=== PATIENT | female | born 1955 | race Caucasian/White ===

== ENCOUNTER → 2016-05-05 | Outpatient (CLI) | payer BC | END | disposition home or self-care (01) | LOC: C.PAPS 11:56 | PROVIDERS: ATTEND Obstetrics & Gynecology | DX: Z01.419 Encounter for gynecological examination (general) (routine) without abnormal findings (principal) ==

== ENCOUNTER → 2017-03-22 | Outpatient (CLI) | payer BC ==
--- NOTE | 2017-03-22 14:34 | MAMMOGRAPHY REPORT ---
BILATERAL DIGITAL SCREENING MAMMOGRAM TOMOSYNTHESIS WITH CAD: 03/22/2017 CLINICAL HISTORY: Routine screening. Patient has no complaints. TECHNIQUE: Breast tomosynthesis in addition to standard 2D mammography was performed. Current study was also evaluated with a Computer Aided Detection (CAD) system. COMPARISON: Comparison is made to exams dated: 03/16/2016 mammogram, 03/12/2015 mammogram, 03/09/2014 mammogram, 03/04/2013 mammogram, 02/26/2012 mammogram, and 02/15/2011 mammogram - [facility]. BREAST COMPOSITION: There are scattered areas of fibroglandular density in both breasts. FINDINGS: No suspicious masses, calcifications, or areas of architectural distortion are noted in ei ther breast. There has been no significant interval change compared to prior exams. Scattered bilater al benign-appearing calcifications are not significantly changed. IMPRESSION: ACR BI-RADS CATEGORY 2: BENIGN There is no mammographic evidence of malignancy. A 1 year screening mammogram is recommended. The pa tient will receive written notification of the results. Approximately 10% of breast cancers are not detected with mammography. A negative mammographic report should not delay biopsy if a clinically suggestive mass is present. Ashlie Bonilla M.D. /:03/22/2017 07:39:48 Nude Model: Celeste DELATORRE([place])([place])([place]), [facility] letter sent: Normal 1/2 BI-RADS Code: ACR BI-RADS Category 2: Benign
== END | disposition home or self-care (01) ==
LOC: C.MAMM 07:09
PROVIDERS: ATTEND Obstetrics & Gynecology
DX: Z12.31 Encounter for screening mammogram for malignant neoplasm of breast (principal)

== ENCOUNTER → 2017-05-07 | Outpatient (CLI) | payer BC | END | disposition home or self-care (01) | LOC: C.PAPS 12:15 | PROVIDERS: ATTEND Obstetrics & Gynecology | DX: Z01.419 Encounter for gynecological examination (general) (routine) without abnormal findings (principal); Z11.51 Encounter for screening for human papillomavirus (HPV) ==

== ENCOUNTER 2024-12-04 06:50 | Observation (INO) ==
--- NOTE | 2024-10-23 09:26 | PAT Medication Instructions ---
Medication Instructions Date of Service October 23, 2024 Home Medications ferrous sulfate 325 mg (65 mg iron) tablet 325 mg PO QAM valacyclovir 1 gram tablet 1,000 mg PO Q2D potassium 75 mg tablet 75 mg PO QAM amitriptyline 25 mg tablet 25 mg PO HS cholecalciferol (vitamin D3) 25 mcg (1,000 unit) tablet (Vitamin D3) 25 mcg PO QAM multivitamin 1 tab PO QAM vit C 250 mg-vit E 90 mg-zinc 40 mg-copper 1 [id number]-iuzgob capsule (PreserVision AREDS-2) 1 tab PO BID Continue as directed valacyclovir 1 gram tablet 1,000 mg PO Q2D STOP taking 2 weeks before surgery (or as soon as possible if surgery is within 2 weeks) vit C 250 mg-vit E 90 mg-zinc 40 mg-copper 1 [id number]-aawdfr capsule (PreserVision AREDS-2) 1 tab PO BID DO NOT take the morning of surgery ferrous sulfate 325 mg (65 mg iron) tablet 325 mg PO QAM potassium 75 mg tablet 75 mg PO QAM cholecalciferol (vitamin D3) 25 mcg (1,000 unit) tablet (Vitamin D3) 25 mcg PO QAM multivitamin 1 tab PO QAM Take evening before surgery amitriptyline 25 mg tablet 25 mg PO HS MORNING OF SURGERY: NOTHING TO EAT OR DRINK AFTER MIDNIGHT Other Notes If you have any questions please call us at [phone] or [phone] or [phone] or [phone]
--- NOTE | 2024-10-30 11:32 | Anesthesiology Consultation ---
Date of Service October 30, 2024 Assessment & Plan (1) Encounter for pre-operative examination: - awaiting surgeon ordered medical clearance, 11/11/24 Dr. Celeste De Dios [facility]. Chart Review Chart Review: Pending: Refer to Additional Notes / Consult section and Patient seen in Pre Admission Testing Teaching & Discussion Pre-Anesthesia Teaching/Discussion Notes: Instructed NPO after midnight before surgery, except medications with 15 cc of water. Medication instructions provided according to the PAT guidelines. History Surgery Operation Date: 12/04/24 08:15 Proposed Procedures p Left Total Hip Arthroplasty - Mehul Carmona MD Height/Weight Height: 5 ft 1 in Weight: 78.9 kg Allergies Allergy/AdvReac Type Severity Reaction Status Date / Time hydroxychloroquine Allergy Unknown Unknown Verified 10/23/24 08:41 [From Plaquenil] Sulfa (Sulfonamide Allergy Unknown Unknown Verified 10/23/24 08:41 Antibiotics) Medications Home Medications Medication Instructions Recorded Confirmed Last Taken ferrous sulfate 325 mg (65 mg 325 mg PO QAM 06/07/19 10/23/24 03/08/21 iron) tablet valacyclovir 1 gram tablet 1,000 mg PO Q2D 06/07/19 10/23/24 03/08/21 potassium 75 mg tablet 75 mg PO QAM 11/05/20 10/23/24 03/08/21 amitriptyline 25 mg tablet 25 mg PO HS 03/03/21 10/23/24 03/08/21 cholecalciferol (vitamin D3) 25 25 mcg PO QAM 03/03/21 10/23/24 03/08/21 mcg (1,000 unit) tablet (Vitamin D3) multivitamin 1 tab PO QAM 10/23/24 10/23/24 Unknown vit C 250 mg-vit E 90 mg-zinc 40 1 tab PO BID 10/23/24 10/23/24 Unknown mg-copper 1 hb-fyewnc-prvugr capsule (PreserVision AREDS-2) Past Medical History Medical History (Updated 10/30/24 @ 11:33 by Kaye Delcid PA-C) Herpes simplex on valacyclovir every other day IBS (irritable bowel syndrome) "it doesn't bother me as much anymore" Macular degeneration Osteoarthritis Patient denies h/o stroke, seizures, heart attack, heart failure, DM, HTN, blood clots/DVTs or blood transfusions. Exercise / Class Metabolic Activity II 4-5 Yardwork/Stairs/Walk up hill (shortness of breath with one flight of stairs-ongoing for several months-denies change or worsening; denies chest discomfort) Past Family History Family History Aunt Lung cancer Maternal Grandmother (Maternal) Ovarian cancer Daughter Skin cancer Denies family history of Breast cancer Colorectal cancer Past Surgical History Surgical History H/O wisdom tooth extraction History of biopsy Thyroid - Benign - To see Endocrinology December 2024 History of cataract surgery Bilateral History of colonoscopy History of esophagogastroduodenoscopy (EGD) History of tonsillectomy and adenoidectomy Past Anesthesia History No Hx of Anesthesia Complications and No Family Hx of Anesthesia Complications History of PONV No Hx of PONV and No Hx of Motion Sickness Social History Smoking Status: Never smoker Do You Dip or Chew Tobacco: No Hx Alcohol Use: No Hx Substance Use: No substance use type: does not use Review of Systems Snoring, denies witnessed apneas. Patient denies chest pain, reflux, fever, chills, cough, wheezing, or palpitations. Physical Exam Vital Signs Vitals BP 136/82 P 98 TEMP 98.4 SP02 97% on RA RESP 18 Physical Patient resting comfortably in chair in no acute distress, alert and oriented, responding appropriately throughout visit Full cervical extension range of motion without pain TMD 3.5 finger breadths Mallampati Score 2 Dentition: several crowns; denies chipped or loose teeth, caps, implants or bridges Lungs: normal respiratory effort. Good air movement, clear throughout to auscultation, no adventitious breath sounds Cardiac: regular rate and rhythm, no murmurs noted Carotid arteries: negative bruit bilat Lab Results Anesthesia Preop Results Results Anesthesia Widget: WBC 5.28 K/ul (4.8-10.8) 10/30/24 Hgb 11.9 g/dl (12.0-16.0) L 10/30/24 Hct 37.1 % (37.0-47.0) 10/30/24 Plt 307 K/uL (130-400) 10/30/24 Na 139 mmol/L (136-145) 10/30/24 K 4.5 mmol/L (3.5-5.1) 10/30/24 Cl 105 mmol/L (98-107) 10/30/24 CO2 28 mmol/L (21-32) 10/30/24 BUN 14 mg/dl (6-23) 10/30/24 Creat 0.68 mg/dl (0.6-1.2) 10/30/24 Glucose Level 92 mg/dl (70-99(Fasting)) 10/30/24 PT 10.9 Seconds (9.0-12.0) 10/30/24 PTT 29 Seconds (21-31) 10/30/24 INR 1.0 (0.9-1.1) 10/30/24 Urine Color Yellow 10/30/24 Urine Appearance Clear (Clear) 10/30/24 Urine pH 6.5 (4.5-7.5) 10/30/24 Urine Specific [place] 1.016 (1.000-1.030) 10/30/24 Urine Protein Negative (Negative) 10/30/24 Urine Glucose (UA) Negative (Negative) 10/30/24 Urine Ketones Trace (Negative) H 10/30/24 Urine Blood Negative (Negative) 10/30/24 Urine Nitrite Negative (Negative) 10/30/24 Urine Bilirubin Negative (Negative) 10/30/24 Urine Urobilinogen Negative (Negative) 10/30/24 Urine Leukocyte Esterase Trace (Negative) H 10/30/24 Urine WBC (Auto) 0-5 /hpf (0-5) 10/30/24 Urine RBC (Auto) 6-10 /hpf (0-2) H 10/30/24 Urine Hyaline Casts (Auto) 0-2 /lpf (0-2) 10/30/24 Urine Epithelial Cells (Auto) 0-2 /hpf (0-2) 10/30/24 Urine Bacteria (Auto) None Seen (None Seen) 10/30/24 Blood Type O Negative 10/30/24 Antibody Screen NEGATIVE 10/30/24 Testing Electrocardiogram Date: 10/30/24 NSR, rate 80 bpm Chest X-Ray Date: 02/28/24 No acute cardiopulmonary disease. Other Testing Thyroid US 03/17/24 Bilateral multinodular goiter showing Heterogeneous echotexture showing increased vascularity may be seen in thyroiditis.
[~2024-12-04 06:50] MED LIST: BUPIVACAINE 0.5 % 5 MG/1 ML PF 10ML VIAL ONE; MIDAZOLAM HCL 1 MG/ML 2ML VIAL ONE
[2024-12-04] MEDS: LR 500ML BOLUS, THEN 15ML/HR IV SCH (07:04)
[2024-12-04] MEDS: LR 60ML/HR IV SCH (07:04)
[2024-12-04] MEDS ORDERED: MIDAZOLAM HCL 1 MG/ML 2ML VIAL ONE (07:26)
[2024-12-04] MEDS ORDERED: ONDANSETRON INJ 2 MG/ML 2 ML VIAL ONE (07:26)
[2024-12-04] MEDS ORDERED: PROPOFOL IV EMULSION 10 MG/ML 20 ML VIAL IV ONE ×3 (07:26→08:45)
[2024-12-04] MEDS ORDERED: LIDOCAINE 2% 2 ML VIAL/AMP(20MG/ML) INFIL ONE (07:26)
--- NOTE | 2024-12-04 07:30 | History & Physical Bridge Note ---
Date of Service December 04, 2024 History & Physical Bridge Note I have examined the patient, reviewed the History & Physical and in the interval since the performance of the History & Physical I have noted the following changes of clinical significance: no changes noted
[2024-12-04] MEDS ORDERED: ATROPINE SULFATE 0.1 MG/ML 10ML SYR IV PRN (07:34)
[2024-12-04] MEDS ORDERED: ONDANSETRON INJ 2 MG/ML 2 ML VIAL IV PRN ×2 (07:34→09:57)
[2024-12-04] MEDS: ACETAMINOPHEN 500 MG TAB PO SCH ×2 (07:35→14:33)
[2024-12-04] MEDS: FAMOTIDINE 20 MG TAB PO SCH (07:35)
[2024-12-04] MEDS: dexAMETHasone**PF** 10 MG/ML VIAL IV SCH (07:36)
[2024-12-04] MEDS: TRANEXAMIC ACID 1,000 MG **IV Pre-op IV SCH (07:56)
[2024-12-04] MEDS: ORTHO JOINT ANESTHETIC ONE (08:42)
[2024-12-04] MEDS ORDERED: PHENYLEPHRINE HCL 10 MG/ML VIAL ONE (09:05)
[2024-12-04] MEDS ORDERED: ePHEDrine sulfate 50 MG/5 ML SYR ONE (09:19)
[2024-12-04] MEDS ORDERED: PHENYLEPHRINE 100MCG/ML 5ML SYR ONE (09:19)
[2024-12-04] MEDS: ROPIV 0.5% 246mg, Ketorolac 30mg, EPINEPHrine 0.5mg in NSS INFIL SCH (09:23)
--- NOTE | 2024-12-04 09:55 | Operative Report ---
Post Operative Report Pre & Post Diagnosis Operation Date: 12/04/24 08:15 Pre-Op Diagnosis: Left Hip Osteoarthritis Post-Op Diagnosis: Left Hip Osteoarthritis I identified the patient and participated in the time-out.: Yes Procedure Operation Date: 12/04/24 08:15 Actual Procedures p Left Total Hip Arthroplasty(Left) - Mehul Carmona MD Surgeon Mehul Carmona MD Employee Benefits Manager Zenon Ruiz PA-Nicole Estimated Blood Loss 100 Findings Consistent with Post-Op Diagnosis Specimens femoral head Description of Procedure I was present during the entire case assisting with positioning, prepping, draping, wound retraction, wound closure, dressing and abduction pillow placement. No fellow present. Please see Dr. Carmona operative note for specifics of the case. I attest to the content of the Intraoperative Record and any orders documented therein. Any exceptions are noted below.
[2024-12-04] MEDS ORDERED: ALUMINUM/MAGNESIUM SUSP 30 ML UDC PO PRN (09:57)
[2024-12-04] MEDS ORDERED: NALOXONE HCL 0.4 MG/1 ML VIAL/CARP IV PRN (09:57)
[2024-12-04] MEDS ORDERED: diphenhydrAMINE 50 MG/ML VIAL IV PRN (09:57)
[2024-12-04] MEDS ORDERED: MAGNESIUM HYDROXIDE SUSP 30 ML UDC PO PRN (09:57)
[2024-12-04] MEDS ORDERED: METOCLOPRAMIDE HCL INJ 5 MG/ML 2 ML VIAL IV PRN (09:57)
--- NOTE | 2024-12-04 10:02 | Operative Report ---
Post Operative Report Pre & Post Diagnosis Operation Date: 12/04/24 08:15 Pre-Op Diagnosis: Left Hip Osteoarthritis, acetabular protrusio Post-Op Diagnosis: Left Hip Osteoarthritis, acetabular protrusio I identified the patient and participated in the time-out.: Yes Procedure Operation Date: 12/04/24 08:15 Actual Procedures p Left Total Hip Arthroplasty. 22 modifier should be added to the surgery secondary to increased time and difficulty due to the patient's acetabular protrusio. - Mehul Carmona MD Surgeon Mehul Carmona MD Assembler Seat ROXANE Ruiz PA-C. No resident or fellow was available to assist. Estimated Blood Loss 100 Findings Consistent with Post-Op Diagnosis Specimens Left femoral head Anesthesia Type Spinal MAC Complications none Disposition Disposition: Recovery Room Indications 69-year-old female with left hip pain refractory to conservative management. X- rays demonstrate severe osteoarthritis of the left hip with marginal osteophytes complete destruction of the joint space, minimal minimal offset, acetabular protrusio, and remodeling changes about the acetabulum. I had a long discussion with her about her diagnosis and treatment options. Surgery is indicated to improve pain and promote function. We extensively discussed the risks and benefits of the surgery, alternatives to surgery, and expected outcomes. She understands she is at increased risk for complications secondary to her acetabular protrusio and minimal offset. All questions were answered. She elected to proceed with surgery. Informed consent was signed. Description of Procedure Patient was identified in the preoperative holding area where the surgical site, left hip, was marked. A spinal anesthetic was placed, then the patient was brought back to the main operating room, placed in the operating table and moved into the lateral decubitus position. Axillary roll was placed. All bony prominences were padded. Perioperative antibiotics and tranexamic acid 1 gram IV were administered. The operative extremity was prepped and draped in the normal sterile fashion. Prior to incision a multidisciplinary timeout was called. All in the room were in agreement. We began by making an incision for a posterior approach to the hip. We dissected down through subcutaneous tissues to the level of the fascia. The fascia was incised in line with the incision. Charnley bow was placed. Fatty tissue was reflected posteriorly off the back of the greater trochanter to expose the piriformis and short external rotators of the hip. Quadratus femoris was taken off the femur subperiosteally. The piriformis and short external rotators were dissected off the posterior aspect of the hip. A box cut was made in the capsule. Inferior hip capsule was released off the femur. Upon entering the hip joint we noticed large osteophytes along the posterior rim of the acetabulum. Extra time and difficulty was needed to remove these osteophytes with an osteotome in order to facilitate dislocating the hip. The femoral head was carefully dislocated. Offset between the femoral head and greater trochanter was measured at 42 mm. The femoral neck cut was made at our preoperative template. The acetabulum was then exposed. Large anterior acetabular osteophytes were noted and removed. The labrum was no longer visible as it had completely ossified. The pulvinar fat and cotyloid fossa were not present due to acetabular approach to show and remodeling changes in the acetabulum. I was able to identify the medial wall however. We then began reaming at a size 8 mm less than our preoperative template taking great care to ream away minimal bone medially and not violate the medial wall. We reamed up by 1 [address] the way up to a size 48 mm cup. This gave us good bleeding cancellus bone circumferentially. The acetabulum was then irrigated out and dried. The real Garvin Gription cup was then impacted down into position with 45 degrees of lateral opening and 25 degrees of anteversion. A single cancellous bone screw was placed up into the ilium. Excellent fixation was obtained. A trial liner for a 32 mm femoral head was then placed. Next, an osteotome was used to remove additional osteophytes noted along the anterior, posterior and inferior aspect of the acetabulum secondary to her acetabular protrusio which required additional time. Next we turned our attention to the femur. The lateral neck was removed with a box osteotome. Intramedullary guide was used to establish the intramedullary canal. We then broached all the way up to a size 5. We began trialing with a standard offset neck and a +1 head. Hip was reduced. Leg lengths were symmetric. The hip was stable in extension and external rotation, and stable in the sleeper position. At 90 degrees of hip flexion the hip could be internally rotated 65 degrees before levering out of the cup. I was very happy with the stability exam. Therefore the hip was dislocated and the femoral trial was removed. The acetabulum was re-exposed, and the trial liner was removed. Lizella hole eliminator screw was placed. An Altrx polyethylene liner for a 32 mm femoral head was then impacted into the shell. The locking mechanism was checked to ensure that it had engaged which it had. The femur was re-exposed. The femoral canal was irrigated and dried. The real Actis femoral stem was opened up. This was impacted down into position. The femoral head was opened up and gently impacted down onto the trunnion. The hip was atraumatically reduced. Another 1 gram of IV tranexamic acid was started prior to closure. The wound was irrigated out with sterile Betadine solution. The periarticular injection cocktail was then placed. The short external rotators, piriformis, and posterior capsule were repaired through drill holes in the greater trochanter using #2 Vicryl. The fascia was run with a looped #1 PDS. The subcutaneous layer was closed with #1 PDS. The dermal layer was closed with 2-0 Vicryl. Zip line was used for the skin followed by a Silverlon dressing. A compressive dressing was then placed. The patient was then rolled supine. Leg lengths were rechecked and were symmetric. An abduction pillow was placed. Sedation was lifted and the patient was transferred to the recovery room in stable condition. Summary of implants: Depuy Garvin Gription Acetabular Shell Sector Cup, 48 mm outer diameter Garvin Cancellous bone screw, 6.5 x 25 mm Lizella hole eliminator Garvin Altrx Polyethylene Acetabular Liner, Neutral, with a 32 mm inner diameter DePuy Actis collared cementless Femoral stem, 12/14 taper, size 5 standard offset 32 mm ceramic femoral head with +1 offset Postoperative course: Patient will be admitted overnight from the recovery room. Patient will be weightbearing as tolerated with posterior hip precautions. Aspirin for DVT prophylaxis I attest to the content of the Intraoperative Record and any orders documented therein. Any exceptions are noted below.
--- NOTE | 2024-12-04 10:15 | Anesthesiology Progress Note ---
Date of Service December 04, 2024 Anesthesia Post Procedure Vital Signs Vital Signs: Temp Pulse Pulse Resp BP BP Pulse Ox 12/04/24 10:05 76 12 99/54 L 99 12/04/24 09:55 98.4 F 80 13 92/56 L 98 12/04/24 07:17 98.6 F 107 H 20 168/102 H 95 O2 Del Method O2 Flow Rate 12/04/24 10:05 Oxymask 4 12/04/24 09:55 Oxymask 9 12/04/24 07:17 Room Air Pain Intensity Left Hip: Pain Intensity: 7 Transfer of Care Handoff Completed per policy Notes Mental Status: alert / awake / arousable and participated in evaluation Patient Amnestic to Procedure: Yes Nausea / Vomiting: adequately controlled Pain: adequately controlled Airway Patency, RR, SpO2: stable & adequate BP & HR: stable & adequate Hydration State: stable & adequate Neuraxial Anesthesia: was administered and sensory block is resolving Anesthetic Complications: no major complications apparent and Pt Satisfied with anesthetic care
--- NOTE | 2024-12-04 10:28 | XRay Report ---
XR pelvis 1-2V routine CLINICAL HISTORY: In PACU - Post Surgical COMPARISON: 11/07/2024 FINDINGS: There are postsurgical changes of a total left hip arthroplasty. The femoral and acetabula r components appear well seated. There is no dislocation. IMPRESSION: Postsurgical changes of a total left hip arthroplasty. ACT 112: Negative or not required by law. Electronically signed by: Oziel Zavaleta M.D. 12/04/2024 10:26 AM
[2024-12-04] MEDS: KETOROLAC TROMETHAMINE 15 MG/ML VIAL IV SCH (12:03)
[2024-12-04] MEDS: SODIUM CHLORIDE 0.9% 1,000 ML IV SCH (12:04)
[2024-12-04] MEDS: Scopolamine CHECK PATCH PLACEMENT SCH (16:18)
[2024-12-04] MEDS ORDERED: NON-FORMULARY MEDICATION (Vit C,E-Zn-Coppr-Lutein-Zeaxan [Preservision Areds-2] 250-90-40- PO SCH (21:00)
[2024-12-04] MEDS: SENNA 8.6 MG TAB PO SCH (21:06)
[2024-12-04] MEDS: AMITRIPTYLINE HCL 25 MG TAB PO SCH (21:06)
[2024-12-04] MEDS: DOCUSATE SODIUM 100 MG CAP PO SCH (21:06)
[2024-12-04] MEDS: ACETAMINOPHEN 325 MG TAB PO SCH (21:07)
[2024-12-05 07:04] LABS: Hematocrit (blood only) 34.2 % (37.0-47.0); Hemoglobin 11.3 g/dl (12.0-16.0); Immature Granulocytes # (auto) 0.04 K/uL (0.01-0.20); Immature Granulocytes % (auto) 0.4 %; Mean Corpuscular Hemoglobin 29.7 pg (25.0-34.0); Mean Corpuscular Volume 89.8 fL (80.0-100.0); Platelet Count 269 K/uL (130-400); RDW Standard Deviation 46.1 fL (36.4-46.3); Red Blood Count 3.81 M/uL (4.20-5.40); White Blood Count 9.39 K/ul (4.8-10.8)
[2024-12-05 07:22] LABS: Anion Gap 7.0 (3-11); Blood Urea Nitrogen 18.0 mg/dl (6-23); Calcium 8.8 mg/dl (8.6-10.3); Carbon Dioxide 25.0 mmol/L (21-32); Chloride 105.0 mmol/L (98-107); Creatinine Clr Calc Pharmacy 64.2 ml/min; Glucose 106.0 mg/dl (70-99(Fasting)); Potassium 3.9 mmol/L (3.5-5.1); Sodium 137.0 mmol/L (136-145)
[2024-12-05 07:52] VITALS: BP 130/72; PULSE 82; RESP 16; TEMP 97.7; O2SAT 98
[2024-12-05] MEDS: ASPIRIN 81 MG ECTAB PO SCH (08:33)
[2024-12-05] MEDS: FERROUS SULFATE 325 MG TAB PO SCH (08:33)
[2024-12-05] MEDS: MULTIVITAMIN TAB PO SCH ×2 (08:33→09:11)
[2024-12-05] MEDS: CHOLECALCIFEROL 25 MCG (1000 UNITS) TAB PO SCH (08:33)
[2024-12-05] MEDS: dexAMETHasone 10 MG in SYRINGE 0 ML IV SCH (08:34)
--- NOTE | 2024-12-05 09:48 | Orthopedic Progress Note ---
Date of Service December 05, 2024 Assessment & Plan (1) S/P total left hip arthroplasty: Plan: Total hip precautions reviewed Weightbearing as tolerated with walker assistance PT/OT Rice with easy wrap Abduction pillow use x 6 weeks DVT prophylaxis with aspirin and HUAN stockings Pain control with p.o. medication Keep Silverlon dressing in place until follow-up Plan is to discharge home today with in-home physical therapy for the first 2 weeks With questions contact our clinic at [phone] Admission and Anticipated Discharge Date Admission Date: December 04, 2024 Subjective This 69-year-old female is day 1 status post left total hip arthroplasty. Patient states she is doing very well. She states that her pain is very minim al. She states she has completed PT and OT and did so without issue. She states she is scheduled to begin in-home physical therapy later this weekend. Currently she denies chest pain, shortness of breath, fever, chills, sweats, nausea, vomiting, diarrhea or numbness or tingling in her left lower extremity. Review of Systems Review of Systems: All systems reviewed & are unremarkable except as noted in Subjective Physical Exam Physical Exam: Left hip: Outer dressing was removed. Silverlon is clean dry and intact and left in place. Patient is able to easily transition from a seated to a standing position with the assistance of her walker. She is able to perform active straight leg raise test. She is able to actively dorsi and plantarflex her foot. She tolerates passive hip flexion near 90 degrees today and only exp eriences a slight pulling sensation with light passive internal rotation. She has no discomfort with external rotation. Logroll test causes no discomfort. She is able to detect light sensation to touch over the pads of all digits. Peripheral pulses are 2+. Her quad strength is 4 out of 5. She is neurovascularly intact in the left lower extremity. Results & Data Vital Signs (Past 12 Hours) Vital Signs Temp Pulse Pulse Resp BP Pulse Ox O2 Del Method 12/05/24 07:00 36.5 C 82 16 130/72 98 Room Air 12/05/24 03:00 36.7 C 92 H 18 119/73 99 Room Air 12/04/24 23:08 36.7 C 106 H 122/74 93 Room Air Diagnostic Findings Laboratory Results WBC 9.39 K/ul (4.8-10.8) 12/05/24 06:20 RBC 3.81 M/uL (4.20-5.40) L 12/05/24 06:20 Hgb 11.3 g/dl (12.0-16.0) L 12/05/24 06:20 Hct 34.2 % (37.0-47.0) L 12/05/24 06:20 MCV 89.8 fL (80.0-100.0) 12/05/24 06:20 MCH 29.7 pg (25.0-34.0) 12/05/24 06:20 MCHC 33.0 g/dL (32.0-36.0) 12/05/24 06:20 RDW Std Deviation 46.1 fL (36.4-46.3) 12/05/24 06: RDW Coeff of Timo 14.0 % (11.5-14.5) 12/05/24 06:20 Plt Count 269 K/uL (130-400) 12/05/24 06:20 MPV 11.1 fL (9.4-12.4) 12/05/24 06:20 Immature Gran % (Auto) 0.4 % 12/05/24 06:20 Neut % (Auto) 76.1 % 12/05/24 06:20 Lymph % (Auto) 12.4 % 12/05/24 06:20 [place] % (Auto) 10.9 % 12/05/24 06:20 Eos % (Auto) 0.1 % 12/05/24 06:20 Baso % (Auto) 0.1 % 12/05/24 06:20 Neut # (Auto) 7.15 K/uL (1.40-6.50) H 12/05/24 06:20 Lymph # (Auto) 1.16 K/uL (1.20-3.40) L 12/05/24 06:20 [place] # (Auto) 1.02 K/uL (0.11-0.59) H 12/05/24 06:20 Eos # (Auto) 0.01 K/uL (0.00-0.50) 12/05/24 06:20 Baso # (Auto) 0.01 K/uL (0.00-0.20) 12/05/24 06:20 Immature Gran # (Auto) 0.04 K/uL (0.01-0.20) 12/05/24 06:20 Sodium 137 mmol/L (136-145) 12/05/24 06:20 Potassium 3.9 mmol/L (3.5-5.1) 12/05/24 06:20 Chloride 105 mmol/L (98-107) 12/05/24 06:20 Carbon Dioxide 25 mmol/L (21-32) 12/05/24 06:20 Anion Gap 7 (3-11) 12/05/24 06:20 BUN 18 mg/dl (6-23) 12/05/24 06:20 Creatinine 0.81 mg/dl (0.6-1.2) 12/05/24 06:20 Est Cr Clr Drug Dosing 64.2 ml/min 12/05/24 06:20 eGFR 79.51 12/05/24 06:20 BUN/Creatinine Ratio 22.2 (10-20) H 12/05/24 06:20 Glucose 106 mg/dl (70-99(Fasting)) H 12/05/24 06:20 Calcium 8.8 mg/dl (8.6-10.3) 12/05/24 06:20 Hepatitis C Ab Screen Negative (Negative) 12/04/24 12:37 Impressions Pelvis X-Ray 12/04/24 09:57 XR pelvis 1-2V routine CLINICAL HISTORY: In PACU - Post Surgical COMPARISON: 11/07/2024 FINDINGS: There are postsurgical changes of a total left hip arthroplasty. The femoral and acetabular components appear well seated. There is no dislocation. IMPRESSION: Postsurgical changes of a total left hip arthroplasty. ACT 112: Negative or not required by law. Electronically signed by: Oziel Zavaleta M.D. 12/04/2024 10:26 AM
--- NOTE | 2024-12-05 09:56 | Discharge Summary ---
Date of Service December 05, 2024 Admission HPI Per Admitting Provider History of Present Illness Arcelia is a 69-year-old female is here today for preoperative history and physical. She is scheduled to have an elective left total hip arthroplasty with Dr. Carmona on December 04, 2024. She states that she has been having pain in her gluteus region for quite some time. She has pain that is increased with activity and weightbearing. It affects her activities of daily living. She has pain on a daily basis. It occasionally wakes her up at night. She also has occasional pain at rest. She has been taking 2 Tylenol 2 times a day for the pain. The pain is described as a sharp discomfort. It is intermittent with intensity. She ambulates without an assistive device. She has not tried formal physical therapy as she was told she would not benefit from this. She has not tried an intra-articular injection due to the severity of her osteoarthritis. Due to her failure of conservative treatment, surgical intervention was recommended. She does agree to proceed with a left total hip arthroplasty as scheduled. Admission Exam Per Admitting Provider General: Well-dressed, well-nourished. Normal mood and affect. Alert and oriented x3. HEENT: Head: Atraumatic, normocephalic. Eyes: Extraocular movements intact, pupils equal round and reactive to light, sclera normal. Ears: Ears grossly n ormal, TMs are clear normal light reflex. Nose: Nares are patent bilaterally. Throat: Oropharynx clear mucous membranes moist good dentition uvula midline. Neck: Supple, no lymphadenopathy, nontender palpation, full range of motion. Cardiac: Regular rate and rhythm, normal S1, S2. No murmurs, rubs or gallops appreciated. Lungs: Clear to auscultation bilaterally. No adventitious sounds. No accessory muscle use. Abdomen: Soft, nontender, nondistended, normal bowel sounds heard in all 4 quadrants. Extremities: Focusing on the patient's left lower extremity: ROM: Flexion 60/ External rotation 10/ Internal rotation 15 + Leobardo test + VALERIE test + Stinchfield test Walks with an antalgic gate Valgus knee alignment bilaterally by 20 Skins intact over lateral hip Principal Diagnosis left hip osteoarthritis Discharge Exam Left hip: Outer dressing was removed. Silverlon is clean dry and intact and left in place. Patient is able to easily transition from a seated to a standing position with the assistance of her walker. She is able to perform active straight leg raise test. She is able to actively dorsi and plantarflex her foot. She tolerates passive hip flexion near 90 degrees today and only experiences a slight pulling sensation with light passive internal rotation. She has no discomfort with external rotation. Logroll test causes no discomfort. She is able to detect light sensation to touch over the pads of all digits. Peripheral pulses are 2+. Her quad strength is 4 out of 5. She is neurovascularly intact in the left lower extremity. Discharge Data Allergies Allergy/AdvReac Type Severity Reaction Status Date / Time hydroxychloroquine Allergy Unknown Unknown- Verified 12/04/24 07:10 [From Plaquenil] "Think it was lip swelling and hives" Sulfa (Sulfonamide Allergy Unknown Unknown-"Think Verified 12/04/24 07:10 Antibiotics) it was lip swelling and hives" Procedures Performed Operation Date: 12/04/24 08:15 Actual Procedures p Left Total Hip Arthroplasty(Left) - Mehul Carmona MD Hospital Course (1) S/P total left hip arthroplasty: Patient had an uneventful overnight stay following left total hip arthroplasty. She states that her pain is very minimal. She is very pleased with the results of the surgery. Patient states that she is scheduled to begin home physical therapy later this weekend. If she has questions or concerns should arise prior to her scheduled follow-up, she will contact clinic. Total hip precautions reviewed Weightbearing as tolerated with walker assistance PT/OT Rice with easy wrap Abduction pillow use x 6 weeks DVT prophylaxis with aspirin and HUAN stockings Pain control with p.o. medication Keep Silverlon dressing in place until follow-up Plan is to discharge home today with in-home physical therapy for the first 2 weeks With questions contact our clinic at [phone] Total Time Total Time Spent Total Time Spent (In Minutes): 25 mins Discharge Plan Discharge Items Patient Disposition: Home - Home Health Services Reason For Visit: Left Hip Osteoarthritis Discharge Diagnosis: s/p Left total hip arthroplasty Activity: As commented below Lifting: None Bathing: Keep incision dry Bathing Comment: may shower tomorrow Sexual Activity: Wait until after follow-up appointment Exercise/Sports: Wait until after follow-up appointment Driving/Machine Use: No driving until cleared by chargeback specialist Weightbearing: Left weightbearing Weightbearing Comment: as tolerated w/ walker Non-emergency contact: Surgeon Call non-emergency contact if: you have any medication questions, your pain is not controlled, your temperature is above 101.5, your wound has increased drainage and your wound pain has increased Follow-up/Referrals: Celeste De Dios MD [Primary Care Provider] - Diet: Regular Addtl Attending Provider Instructions: Post-operative Instructions Dear Patient and Family/Friends, Before you are discharged from the hospital, it is important to know what to expect when you get home after surgery. To that end, we have created this sheet of discharge instructions which covers many commonly asked questions. Make sure you go through this sheet in its entirety with your nurse before you are discharged. Please note that we will go over the specifics of your surgery and recovery when you return for your first post-operative visit. Sincerely, Dr. Carmona Medications 1. Oxycodone 5 mg: Take 1 to 2 tablets every 4-6 hours as needed for postoperative pain control. A prescription for this medication will be sent to your pharmacy. 2. Diclofenac sodium 75 mg: Take 1 tablet twice daily for the first 30 days postoperatively for pain and inflammation relief. This will also be sent to your pharmacy with a refill. 3. Aspirin 81 mg: Take 1 tablet twice daily for the first 30 days postoperatively for blood clot prevention. Please purchase this medication. 4. Extra strength Tylenol 500 mg: Take 2 tablets every 6-8 hours as needed for additional pain relief. Please purchase this medication. Pain Expect to be in a fair amount of pain after surgery. Remember, our goal is not to eliminate your pain, but to make it tolerable. It is a good idea to stay ahead of your pain by taking the medications you were prescribed once you get home. Typically, the pain starts improving 3-7 days after surgery. You should start weaning off the narcotic pain medication (oxycodone, hydrocodone, hydromorphone, morphine) as soon as your pain improves. Please call our office if your pain is not adequately controlled. Ice Ice your operative site at least 5 times a day for 15-30 minutes at a time. Make sure you have a thin cloth between the ice or cooling unit and your skin to prevent camilo bite. This is especially important if you received a nerve block. Continue icing your operative site for the first 5-7 days after surgery, then as needed. Diet/Nausea/Vomiting Start by drinking clear liquids and eating crackers. If you can tolerate this, then you may resume your normal diet. If you feel nauseated or vomit, take Zofran/ondansetron (if prescribed). Please call our office if you have intractable nausea or vomiting, or, if after hours, you may go to the Emergency Room for help. Constipation Constipation is a common side effect of narcotic pain medication. If you have not had a bowel movement within 2 days after surgery, we recommend purchasing an over the counter laxative such as Milk of Magnesia, Dulcolax, or Miralax from a local pharmacy, and taking it as instructed. Call our clinic if any questions. Nerve block The anesthesia team sometimes places a nerve block to help with post-operative pain control. This results in significant numbness and inability to move the extremity. The nerve block usually wears off in 8-12 hours, but sometimes can last up to 24 hours. Please call our office if you are still unable to move your extremity after 24 hours, unless you received a pain pump to take home. Nerve blocks typically wear off quickly, so start taking pain medication as soon as you start feeling soreness near your surgical site. Weight bearing and Range of Motion. Do not bear any weight through your operative extremity immediately after surgery. If you had upper extremity surgery, do not lift anything with that arm. If you are in a knee brace, keep it locked in place until your follow-up. We will discuss your weight bearing, range of motion, and lifting restrictions in detail at your first post-operative appointment. Continuous Passive Motion (CPM) Machine If you were prescribed a CPM machine, it will start after your first post- operative appointment, at which time we will give you instructions on the range of motion settings and duration of treatment Physical therapy You will be given a prescription for physical therapy or occupational therapy at your first post-operative appointment. Typically, patients start therapy within 1 week of surgery Wound care and showering We will inspect your wound at your first post-operative visit, and may do a dressing change at that time. Most patients will be in a water-proof dressing that is removed 14 days after surgery. It is normal to see some dried blood on the dressing. Do not remove your dressing, paper strips or sutures yourself unless you are given permission. Showering is allowed the day after surgery. Do not scrub or remove any dressings. The wound should not be submerged underwater (i.e. in a bathtub or pool) until 4 weeks after surgery HUAN stockings If you were given white stockings, these are to be worn at all times except to shower (on both legs) for the first 2 weeks after surgery. Driving You may not drive while taking narcotic pain medication or while in a cast, splint, sling or brace. You, the patient, need to make the final determination about when you are safe to drive, however, the earliest you may consider driving after surgery is below: Hand/Wrist/Elbow Surgery: 3 days Shoulder Surgery: 2 weeks Hip,/Knee/Ankle Surgery: 4 weeks Fracture repair: 6 weeks Return to Work Your return to work depends on what surgery was done and what type of work you do. Please bring any paperwork your employer needs completed to your first post-operative visit. Also, bring a description of your job duties, as this helps us to understand what risks you may face at work. Travel Avoid long distance travel (greater than 1 hour) in airplanes and cars for the first 6 weeks after surgery. If you must travel, you need to have a Doppler ultrasound done before you travel to rule out a blood clot in your legs. Follow-up You should have a follow-up appointment already scheduled 1-2 days after surgery. If not, please contact our office to make this appointment before you leave the hospital. When to call the office It is normal to have swelling and bruising in the limb that was operated on. This will improve with time. It is also normal to have fevers for the first 2 days after surgery. Reasons you should call your doctor include: Uncontrolled pain; Nausea, vomiting, or constipation that does not improve with medication; Fevers over 101.5, chills, sweats; Drainage or bleeding from the wound; Foul odor; Spreading areas of redness; Any other concerns. Contact Information Please call Dr. Carmona's office at [phone] with any concerns. Pending Studies at Discharge: No Stand-Alone Forms: [facility] Medications and DC Order Prescriptions: New acetaminophen [Tylenol Extra Strength] 500 mg Tablet 1,000 mg PO Q8 30 Days Qty: 180 0RF aspirin 81 mg Tablet,Delayed Release (Dr/Ec) 81 mg PO BID 30 Days Qty: 60 0RF oxycodone 5 mg Tablet 5 - 10 mg PO Q4H MDD Max 6/day PRN (Reason: Postoperative pain control) Qty: 28 0RF diclofenac sodium 75 mg tablet,delayed release (DR/EC) 75 mg PO BID 30 Days Qty: 60 0RF Continued potassium 75 mg tablet 75 mg PO QAM ferrous sulfate 325 mg (65 mg iron) tablet 325 mg PO QAM valacyclovir [Valtrex] 1 gram tablet 1,000 mg PO Q2D amitriptyline 25 mg Tablet 25 mg PO HS cholecalciferol (vitamin D3) [Vitamin D3] 25 mcg (1,000 unit) tablet 25 mcg PO QAM multivitamin Tablet 1 tab PO QAM PreserVision AREDS-2 250-90-40-1 mg Capsule 1 tab PO BID Discontinued acetaminophen 650 mg Tablet 650 mg PO BID Discharge Orders: Discharge Order (Routine); Ordered 12/05/24 Ordered By: Hugo Ruiz Admission Data Admit Date/Time: 12/04/24 06:57 Attending Provider: Mehul Carmona Admit Provider: Mehul Carmona Primary Care Provider: Celeste De Dios Other Providers: [facility],Home Healthcare; [facility] [place]
[2024-12-07] MEDS ORDERED: Scopolamine REMOVE TRANSDERM PATCH ONE (08:00)
== END 2024-12-05 11:44 | disposition home health service (06) ==
LOC: ASU 06:50 → INTOOBSV 06:57 → 3E 06:57